=== PATIENT | male | born 2000 | race African-American/Black ===

== ENCOUNTER 2022-09-18 09:14 | Emergency (ER) | payer MEDICAID, OTHER ==
[~2022-09-18] VITALS: Ht 165 cm; Wt 69.0 kg
[2022-09-18] MEDS ORDERED: ONDANSETRON 4 MG (ZOFRAN) ORAL DISSOLVE TAB PO STA (09:23)
[2022-09-18] MEDS ORDERED: ONDA8TAB13 SL (09:38)
--- NOTE | 2022-09-18 09:39 | ED GI ---
General Chief Complaint: Abdominal/GI Problems Stated Complaint: N/V Nursing Triage Note: PT WITH FAMILY OF 4 WHO STARTED HAVING NV AT ABOUT 0200 THIS A.M. DURING TRIAGE PT STATED HE FELT LIKE HE WAS GOING TO PASS OUT AND LAID HIS HEAD BACK ON THE PILLOW, PT HOOKED UP TO THE MONITOR, HR 114 SINUS TACH 117/78 98% AT THIS TIME Source of Information: Patient, EMS Exam Limitations: No Limitations History of Present Illness Date Seen by Provider: Sep 18, 2022 Time Seen by Provider: 09:11 Initial Comments 22-year-old male who is otherwise healthy but currently presents to the emergency department today for nausea and vomiting. Symptoms started about 230 this morning. She her boyfriend and 2 children all arrive via ambulance for similar symptoms. The youngest child has been sick for couple of days with anuradha lar symptoms. Everyone else started vomiting about 230 this morning. She has diffuse abdominal cramping without any focal pain. No vaginal symptoms. No urinary symptoms. Firefighters checked at home for carbon monoxide prior to transfer and it was negative. All other systems reviewed and negative except documented per HPI. Voice recognition software was used to help create this chart Allergies and Home Medications Allergies Coded Allergies: No Known Drug Allergies (Unverified , 09/18/22) Patient Home Medication List Home Medication List Reviewed: No Ondansetron (Ondansetron Odt) 8 Mg Tab.rapdis, 8 MG SL Q6H PRN for NAUSEA/VOMITING Prescribed by: JESUS ALBERTO OLIVA MD on 09/18/22 0938 Review of Systems Review of Systems Constitutional: see HPI Past Ifohqhm-[id number]-[id number] Hx Patient Social History Tobacco Use?: No Substance use?: No Alcohol Use?: No Immunizations Up To Date Second COVID19 Vaccination Turner: YES Past Medical History Surgery/Hospitalization HX: HERNIA Physical Exam Vital Signs Vital Signs - First Documented 09/18/22 09:18 Temp 37.2 Pulse 108 Resp 20 B/P (MAP) 130/74 (92) Pulse Ox 99 O2 Delivery Room Air Capillary Refill : Less Than 3 Seconds Height/Weight/BMI Height: '" Weight: lbs. oz. kg; 25.00 BMI Method: General Appearance: WD/WN, no apparent distress HEENT: normal ENT inspection, pharynx normal Neck: non-tender, supple Respiratory: chest non-tender, lungs clear, normal breath sounds, no respiratory distress, no accessory muscle use Cardiovascular: regular rate, rhythm, no murmur Gastrointestinal: normal bowel sounds, non tender, soft, no organomegaly Extremities: normal range of motion, non-tender, normal inspection, normal capillary refill Neurologic/Psychiatric: alert, normal mood/affect, oriented x 3 Skin: normal color, warm/dry Progress/Results/Core Measures Results/Orders My Orders Orders - JESUS ALBERTO OLIVA DO Ondansetron Oral Dissolve Tab (Zofran (09/18/22 09:23) Vital Signs/I&O 09/18/22 09/18/22 09:18 10:02 Temp 37.2 37.2 Pulse 108 105 Resp 20 20 B/P (MAP) 130/74 (92) 107/60 Pulse Ox 99 99 O2 Delivery Room Air Room Air Blood Pressure Mean: 92 Departure Communication (Admissions) Patient is hemodynamically stable. Likely viral in origin given the entire family has similar symptoms. No common food source or other commonalities suggest waterborne, foodborne illness etc. Car monoxide testing was done at the scene and negative. Supportive care with Zofran and fluids. Tolerating fluids prior to discharge Impression Primary Impression: Nausea and vomiting Qualified Codes: R11.2 - Nausea with vomiting, unspecified Disposition: 01 HOME, SELF-CARE Condition: Stable Departure-Patient Inst. Patient Instructions: Nausea and Vomiting, Adult (DC) Add. Discharge Instructions: Increase your fluids at home, rest. Use Zofran by dissolving under your tongue as needed for nausea. Return to the emergency department for any severe concerns. Follow-up with primary doctor for any nonemergent needs. All discharge instructions reviewed with patient and/or family. Voiced understanding. Scripts Ondansetron (Ondansetron Odt) 8 Mg Tab.rapdis 8 MG SL Q6H PRN for NAUSEA/VOMITING for 5 Days, #20 TAB Prov: JESUS ALBERTO OLIVA DO 09/18/22 JESUS ALBERTO OLIVA DO Sep 18, 2022 09:39
[2022-09-18 10:02] VITALS: BP 107/60
== END 2022-09-18 10:02 | disposition home or self-care (01) ==
LOC: ER 09:15
DX: R11.2 Nausea with vomiting, unspecified (principal)
CPT/HCPCS: 99281